=== PATIENT | male | born 1955 | race Caucasian/White ===

== ENCOUNTER 2018-04-27 19:02 | Inpatient (IN) | payer BC, OTHER ==
[~2018-04-27] VITALS: Ht 167.6 cm; Wt 42.2 kg
[~2018-04-27 19:02] MED LIST: ALBUTEROL2.5 MG/31 INH; BAYER CHEWABLE81 MG PO; BROVANA15 MCG/2 M INH; CARVEDILOL12.5 MG PO; CARVEDILOL6.25 M1 PO; CLONAZEPAM 0.50.5 M1 PO; DILTIAZEM 24HR180 M1 PO; DULERA 200 MCG/13 GM INH; IPRAT-ALBUT 0.5-3 ML INH; LASIX 40 MG TAB40 M1 PO; LEVAQUIN 500 M500 M2 PO; NITROGLYCERIN0.4 MG SUBLING; NORVASC5 MG PO; PREDNISONE 20 M20 MG PO; PULMICORT0.5 MG/2 M INH; REQUIP 0.25 M0.25 M1 PO; TOPROL XL25 MG PO; VENTOLIN HFA 1818 GM INH; ZOCOR20 MG PO
[2018-04-27 19:03] VITALS: BP 163/110
[2018-04-27] MEDS ORDERED: PROTONIX (19:12)
[2018-04-27] MEDS ORDERED: ALBUTEROL2.5 MG/31 (19:13)
[2018-04-27] MEDS ORDERED: DULERA (19:13)
[2018-04-27] MEDS ORDERED: MUCINEX600 MG (19:13)
[2018-04-27] MEDS ORDERED: SPIRIVA (19:14)
[2018-04-27] MEDS ORDERED: STOOL SOFT50 MG/5 ML (19:14)
[2018-04-27] MEDS ORDERED: JEVITY (19:15)
[2018-04-27 19:21] LABS: BE 0.6 mmol/L (-2 to +3)
[2018-04-27 19:30] LABS: PCO2 102.2 mmHg (35.0-45.0)
[2018-04-27 19:31] LABS: PO2 419.7 mmHg (75.0-100.0)
[2018-04-27 19:38] LABS: ABSOLUTE BASOPHILS 0.1 thou/uL (0.0-0.2); ABSOLUTE LYMPHOCYTES 5.2 thou/uL (0.8-5.3); ABSOLUTE MONOCYTES 0.7 thou/uL (0.0-1.2); ABSOLUTE NEUTROPHILS 9.6 thou/uL (1.6-8.1); BASOPHILS 0.5 %; HEMATOCRIT 35.8 % (42.0-52.0); HEMOGLOBIN 11.5 gm/dL (14.0-18.0); LYMPHOCYTES 33.3 %; MCH 28.1 pg (26.0-34.0); MCHC 32.1 g/dL (28.0-37.0); MCV 87.5 fL (80.0-100.0); MONOCYTES 4.7 %; MPV 7.1 fl. (7.2-11.1); NUCLEATED RBCS 0 /100WBC; PLATELET COUNT* 392 thou/uL (150-400); POLYS 61.5 %; RBC 4.09 mil/uL (4.50-6.00); RDW-CV 19.3 % (10.5-14.5); WBC 15.7 thou/uL (4.0-11.0)
[2018-04-27 20:06] LABS: APTT 32.6 Seconds (25.0-31.3); PROTIME 10.6 Seconds (9.20-11.50)
[2018-04-27 20:11] LABS: ANION GAP 8 mmol/L (7-16); BUN 21 mg/dL (7-18); CALCIUM 8.8 mg/dL (8.5-10.1); CHLORIDE 102 mmol/L (98-107); CO2 28 mmol/L (21-32); GLUCOSE 202 mg/dL (70-99); POTASSIUM 4.1 mmol/L (3.5-5.1); SODIUM 138 mmol/L (136-145)
[2018-04-27 20:22] LABS: ALBUMIN 2.4 g/dL (3.4-5.0); ALKALINE PHOSPHATASE 183 U/L (46-116); LIPASE 104 U/L (73-393); MAGNESIUM 1.9 mg/dL (1.8-2.4); SGOT 41 U/L (15-37); SGPT 27 U/L (30-65); TOTAL BILIRUBIN 0.5 mg/dL (<0.1-1.0); TOTAL PROTEIN 6.4 g/dL (6.4-8.2); TROPONIN-I LEVEL 0.46 ng/mL (<0.06)
[2018-04-27 20:46] LABS: NT-PRO BRAIN NAT PEPTIDE > 35000 pg/mL (<300)
[2018-04-27 21:09] LABS: URINE BILIRUBIN NEGATIVE (Negative); URINE BLOOD TRACE (Negative); URINE CLARITY CLEAR; URINE COLOR YELLOW; URINE GLUCOSE-RANDOM NEGATIVE (Negative); URINE KETONES NEGATIVE (Negative); URINE LEUKOCYTES-REFLEX NEGATIVE (Negative); URINE NITRITE-REFLEX NEGATIVE (Negative); URINE PROTEIN TRACE (Negative); URINE UROBILINOGEN 0.2 E.U./dl (0.2-1.0)
[2018-04-27 22:00] VITALS: BP 145/95
[2018-04-27 22:13] VITALS: BP 155/98
[2018-04-27 22:57] VITALS: BP 146/96
[2018-04-27 23:27] VITALS: BP 118/76
[2018-04-27 23:57] VITALS: BP 112/74
[2018-04-28] VITALS (38 sets, daily range): BP systolic 98–144; BP diastolic 56–79
[2018-04-28 09:02] LABS: BE 2.4 mmol/L (-2 to +3); PCO2 44.1 mmHg (35.0-45.0); pH 7.411 (7.340-7.450)
[2018-04-28 09:08] LABS: PO2 188.9 mmHg (75.0-100.0)
--- NOTE | 2018-04-28 11:09 | EKG ---
[place] [address] ELECTROCARDIOGRAM REPORT Name: COSMO,AYSE WILLSON Room: [address] ADM IN M.R.#: [id number] Admission: 04/27/18 Attend Phys: Vesna Fam Discharge: Date of : 59 Report #: [id number] THIS REPORT FOR: //name// [facility] ED Test Date: 2018-04-27 Test Time: 19:30:17 Pat Name: AYSE WILBURN Department: Room: [facility] Gender: M Modular Home Crew Member: NANCY : 1955 Requested By: iMcky James Order Number: [id number] MD: Vaughn Mcduffie Measurements Intervals [place] Rate: 108 P: 75 WV: 128 QRS: 94 QRSD: 93 T: 92 QT: 355 QTc: 476 Interpretive Statements Sinus tachycardia Right axis deviation Consider left ventricular hypertrophy Probable lateral infarct, age indeterminate Abnrm T, consider ischemia, anterolateral lds Artifact in lead(s) II,III,aVR,aVL,aVF,V1,V2,V3,V4,V5,V6 Compared to ECG 02/10/2018 10:20:54 Possible ischemia now present rate slowed Electronically Signed On 04-28-2018 11:09:39 SENIOR SOFTWARE ENGINEERING MANAGER by Vaughn Mcduffie [email or web address] <ELECTRONICALLY SIGNED> By: Vaughn Mcduffie MD, [facility] 04/28/18 1109 29 29 Vaughn Mcduffie MD, [facility] /EPI
--- NOTE | 2018-04-28 12:25 | EKG ---
[place] [address] ELECTROCARDIOGRAM REPORT Name: AYSE WILBURN Room: [address] ADM IN M.R.#: [id number] Admission: 04/27/18 Attend Phys: Vesna Fam Discharge: Date of : 59 Report #: [id number] THIS REPORT FOR: //name// [facility] Test Date: 2018-04-28 Test Time: 09:59:51 Pat Name: AYSE WILBURN Department: Room: [address] Gender: M Legislative Aide: HORTENSIA : 1955 Requested By: Trudy Hamilton Order Number: [id number] Ene MD: Vaughn Mcduffie Measurements Intervals [place] Rate: 96 P: 91 RI: 122 QRS: 90 QRSD: 90 T: 162 QT: 521 QTc: 659 Interpretive Statements Sinus arrhythmia Borderline right axis deviation Repol abnrm, prob ischemia, anterolateral lds Prolonged QT interval Electronically Signed On 04-28-2018 12:25:16 SENIOR RELATIONSHIP MANAGER by Vaughn Mcduffie [email or web address] <ELECTRONICALLY SIGNED> By: Vaughn Mcduffie MD, [facility] 04/28/18 1225 0959 0959 Vaughn Mcduffie MD, [facility] /EPI
--- NOTE | 2018-04-28 15:51 | 2DMMODE ---
[place] [address] 2 D/M-MODE ECHOCARDIOGRAM Name: AYSE WILBURN Room: [facility] ADM IN [facility]#: [id number] Admission: 04/27/18 Attend Phys: Claude Velazco Discharge: Date of : 59 Date of Service: 04/28/18 1551 Report #: [id number] THIS REPORT FOR: //name// APPROVED REPORT Study performed: 04/28/2018 13:51:21 EXAM: Limited 2D, Doppler, and color-flow Echocardiogram Patient Location: In-Patient Room #: 008 Status: routine BSA: 1.44 HR: 79 bpm BP: 108/67 mmHg Rhythm: NSR Other Information Study Quality: Good Indications Aortic Valve Disease Dyspnea 2D Dimensions LVOT Diam: 21.94 (18-24mm) Aortic Valve AoV Peak Porfirio.: 3.69 m/s AO Peak Gr.: 54.50 mmHg LVOT Max P.46 mmHg AO Mean Gr.: 33.74 mmHg LVOT Mean P.43 mmHg LVOT Max V: 0.78 m/s AO V2 VTI: 81.51 cm LVOT Mean V: 0.56 m/s XIANG (VTI): 0.79 cm2 LVOT V1 VTI: 17.10 cm Tricuspid Valve RAP Estimate: 5.00 mmHg TR Peak Gr.: 40.08 mmHg RVSP: 45.00 mmHg PA Pressure: 45.00 mmHg Left Ventricle The left ventricle is normal size. There is global hypokinesis of the left ventricle. Moderate concentric left ventricular hypertrophy. Left ventricular systolic function is mildly decreased. LVEF is 45-50%. [place] [address] 2 D/M-MODE ECHOCARDIOGRAM Name: AYSE WILBURN Room: [address] IN [facility].#: [id number] Admission: 04/27/18 Attend Phys: Claude Velazco Discharge: Date of : 59 Date of Service: 04/28/18 1551 Report #: [id number] Right Ventricle The right ventricle is normal size. The right ventricular systolic function is normal. Atria The left atrium size is normal. The right atrium size is normal. Aortic Valve Severe aortic valve sclerosis. No aortic regurgitation is present. Severe aortic stenosis. Mitral Valve The mitral valve is normal in structure. Mild mitral regurgitation. Tricuspid Valve The tricuspid valve is normal in structure. Mild tricuspid regurgitation. Moderate pulmonary hypertension. estimate pa pressure 50 mm Hg Pulmonic Valve The pulmonary valve is normal in structure. Great Vessels The aortic root is normal in size. Pericardium There is no pericardial effusion. Left pleural effusion. <Conclusion> Moderate concentric left ventricular hypertrophy. LVEF is 45-50%. Severe aortic stenosis. <ELECTRONICALLY SIGNED> By: Vaughn Mcduffie MD, FACC 04/28/18 155 155 50 Vaughn Mcduffie MD, FACC /INF
[2018-04-29] VITALS (56 sets, daily range): BP systolic 101–169; BP diastolic 56–82
[2018-04-29 03:59] LABS: ABSOLUTE LYMPHOCYTES 0.7 thou/uL (0.8-5.3); ABSOLUTE MONOCYTES 0.1 thou/uL (0.0-1.2); ABSOLUTE NEUTROPHILS 4.2 thou/uL (1.6-8.1); BASOPHILS 0.4 %; MCH 28.2 pg (26.0-34.0); MCHC 32.7 g/dL (28.0-37.0); MCV 86.2 fL (80.0-100.0); MONOCYTES 2.4 %; MPV 7.3 fl. (7.2-11.1); NUCLEATED RBCS 0 /100WBC; POLYS 83.2 %; RBC 3.37 mil/uL (4.50-6.00); RDW-CV 19.6 % (10.5-14.5)
[2018-04-29 04:09] LABS: HEMOGLOBIN 9.5 gm/dL (14.0-18.0); PLATELET COUNT* 278 thou/uL (150-400)
[2018-04-29 04:38] LABS: CALCIUM 8.4 mg/dL (8.5-10.1); CREATININE 0.8 mg/dL (0.6-1.3)
[2018-04-29 04:55] LABS: POTASSIUM 2.7 mmol/L (3.5-5.1)
[2018-04-29 09:15] LABS: BE 3.7 mmol/L (-2 to +3); PCO2 42.4 mmHg (35.0-45.0); pH 7.441 (7.340-7.450)
--- NOTE | 2018-04-29 09:40 | EKG ---
[place] [address] ELECTROCARDIOGRAM REPORT Name: AYSE WILBURN DEMETRIS Room: [address] ADM IN M.R.#: [id number] Admission: 04/27/18 Attend Phys: Vesna Fam Discharge: Date of : 59 Report #: [id number] THIS REPORT FOR: //name// [facility] Test Date: 2018-04-29 Test Time: 05:56:20 Pat Name: AYSE WILBURN Department: Room: [address] Gender: M Double Needle Operator Lockstitch: Zhao Varma : 1955 Requested By: Claude Velazco Order Number: [id number] Ene MD: Vaughn Mcduffie Measurements Intervals [place] Rate: 168 P: 266 NM: 130 QRS: 92 QRSD: 90 T: 261 QT: 294 QTc: 492 Interpretive Statements Supraventricular tachycardia Right axis deviation Consider left ventricular hypertrophy Repolarization abnormality, prob rate related Compared to ECG 04/28/2018 09:59:51 Sinus arrhythmia no longer present Electronically Signed On 04-29-2018 9:40:27 POLYMERIZATION ENGINEER by Vaughn Mcduffie [email or web address] <ELECTRONICALLY SIGNED> By: Vaughn Mcduffie MD, FAC 04/29/18 0940 0556 0556 Vaughn Mcduffie MD, [facility] /EPI
--- NOTE | 2018-04-29 10:59 | CON ---
[facility] [address] [place] [address] CONSULTATION Name: COSMOAYSE DEMETRIS Room: [address] IN M.R.#: [id number] Admission: 04/27/18 Attend Phys: Vesna Fam Discharge: Date of : 59 Report #: [id number] THIS REPORT FOR: //name// CC: Arnoldo Velazco HISTORY OF PRESENT ILLNESS: The patient is a 62-year-old male patient with history of chronic respiratory failure secondary to COPD. He is on home oxygen and unfortunately continues to smoke. He presented to the Emergency Department and admitted to this facility with the date of admission 04/27/2018. He presented with increasing shortness of breath, cough and dyspnea. His at the bedside told me they noticed for the last 48 hours, he was not acting right. He was slow, sleepy, tired and fatigued. Then, it was noticed the sleeping was slow. When he presented to the ER, apparently he was feeling very short of breath with marked worsening of breathing over 45 minutes duration. Upon arrival to the ER, he was on CPAP en route and he was given a steroid by the EMS. There was significant respiratory distress, short brief trial of noninvasive ventilation was not successful and he ended up intubated. When I saw him, he was on the propofol. He was tolerating the vent well. He was sedated and his at the bedside. Around a month ago, he ended up with a PEG tube secondary to weight loss and poor appetite, although his told me that he has no dysphagia, no cough and no choking with meals, but he continued to lose weight. This gentleman is well known to our service. He was hospitalized at this facility a few months ago with respiratory failure and he was on the vent and his workup showed bilateral upper lobe pulmonary opacities and a PET scan was recommended for him. He followed Dr. Baxter and he actually supposed to have a PET scan done this month at [facility]. It was not done yet. HOME MEDICATIONS: DuoNeb, Brovana, Coreg, diltiazem, Lasix and Protonix. There is a mention of Spiriva and Dulera on his record and Zocor. ALLERGIES: FENTANYL and MORPHINE, per the record. PAST MEDICAL HISTORY: Chronic respiratory failure, on home oxygen; COPD; active smoker; pulmonary opacities as mentioned above and hyperlipidemia. PAST SURGICAL HISTORY: No major surgery other than the PEG tube placement. PHYSICAL EXAMINATION: GENERAL: He was sedated with propofol. Sedated, thin gentleman. VITAL SIGNS: Blood pressure 110/68, breathing 15 times per minute with the vent, pulse rate of 82 and temperature 36.3. HEENT: Normocephalic and atraumatic. Pupils are reactive to light, pinpointed, not jaundiced, not pale. External ear looks normal. Oral cavity, moist mucous membrane with ET tube [place] [address] CONSULTATION Name: AYSE WILBURN Room: [address] IN M.R.#: [id number] Admission: 04/27/18 Attend Phys: Vesna Fam Discharge: Date of : 59 Report #: [id number] NECK: Full range of movement. Nontender. No masses felt. No increased jugular venous pressure with central trachea. CHEST: Diminished air movement bilaterally. Prolonged expiratory phase. No wheezes. HEART: S1 and S2. ABDOMEN: Soft, lax, benign and nontender. PEG tube was noted. No masses felt. EXTREMITIES: Lower extremity: No edema. No calf tenderness. PSYCHIATRIC: Mood and affect could not be evaluated. NEUROLOGICAL: Sedated. LYMPHATICS: No pleural lymph nodes. SKIN: No rash. LABORATORY DATA: His initial ABGs 7.12/102/419 that was on BiPAP. Repeat ABG this morning on the vent 7.4/44/188 and this was done on tidal volume of 550. His bicarbonate is 28 with a potassium 4.1, sodium 138, BUN 21 and creatinine of 1. BNP was also elevated. His PTT was 32. RADIOLOGICAL DATA: His chest x-ray showed the ET tube in good position and prominence and opacities bilaterally with signs of fluid overload. His last echocardiogram during the last hospitalization in January 2018 demonstrated EF of 45% with a grade 1 diastolic dysfunction with moderate pulmonary hypertension. IMPRESSION: 1. Uolot-ha-kuqtstp hypoxic and hypercapnic respiratory failure. 2. Chronic obstructive pulmonary disease exacerbation. 3. Congestive heart failure with ejection fraction 45% and abnormal relaxation pattern suggestive of diastolic dysfunction. 4. Pulmonary hypertension, moderate. 5. Continues to smoke. 6. Status post percutaneous endoscopic gastrostomy tube placement for continued weight loss and loss of appetite. 7. Pulmonary nodules and opacities in the upper lung wall bilaterally. PLAN: The patient of Dr. Baxter, he is supposed to have PET scan done this month, but it was not done yet. I discussed with his , He will continue to follow with his Pulmonoligist to have the PET scan scheduled as outpatient after the resolution of current acute illness . Currently, he is in respiratory failure secondary to COPD exacerbation. Continue IV steroids, continue scheduled nebulization treatment. We will add Brovana and Pulmicort for him. Continue antibiotics. Monitor fluid status. Consider p.r.n. diuresis with continue the current plan of sedation for now. We will attempt weaning trial in the morning. Condition guarded. [place] [address] CONSULTATION Name: AYSE WILBURN Room: [address] IN .R.#: [id number] Admission: 04/27/18 Attend Phys: Vesna Fam Discharge: Date of : 59 Report #: [id number] CRITICAL CARE TIME: 35 minutes. <ELECTRONICALLY SIGNED> By: Justina Gayle MD 04/29/18 1059 0936 Montserrat Gayle MD /nt
[2018-04-30] VITALS (15 sets, daily range): BP systolic 124–162; BP diastolic 65–91
[2018-04-30 04:41] LABS: HEMATOCRIT 26.6 % (42.0-52.0); MCH 28.9 pg (26.0-34.0); MCHC 33.7 g/dL (28.0-37.0); MCV 85.7 fL (80.0-100.0); MPV 7.6 fl. (7.2-11.1); NUCLEATED RBCS 0 /100WBC; PLATELET COUNT* 263 thou/uL (150-400); RDW-CV 18.7 % (10.5-14.5); WBC 6.4 thou/uL (4.0-11.0)
[2018-04-30 04:55] LABS: ALBUMIN 1.9 g/dL (3.4-5.0); CALCIUM 8.1 mg/dL (8.5-10.1); CREATININE 0.9 mg/dL (0.6-1.3); POTASSIUM 3.6 mmol/L (3.5-5.1); TOTAL BILIRUBIN 0.3 mg/dL (<0.1-1.0)
[2018-04-30 05:40] LABS: ABSOLUTE LYMPHOCYTES 0.6 thou/uL (0.8-5.3); ABSOLUTE MONOCYTES 0.1 thou/uL (0.0-1.2); ABSOLUTE NEUTROPHILS 5.6 thou/uL (1.6-8.1)
[2018-04-30 05:41] LABS: ANISOCYTOSIS 1+; PLATELET ESTIMATE ADEQUATE
[2018-05-01 11:12] VITALS: BP 118/58
[2018-05-01 11:26] VITALS: BP 118/58
[2018-05-01] MEDS ORDERED: LISINOPRIL5 MG PO (12:33)
== END 2018-05-01 13:20 | disposition home or self-care (01) | DRG 208 ==
LOC: M.ERS 19:02 → M.ICU 20:41 → M.TBA-ER 20:41 → M.ICU 21:30
PROVIDERS: Family Medicine; Internal Medicine; ADMIT Internal Medicine
PROC: 02HV33Z Insertion of Infusion Device into Superior Vena Cava, Percutaneous Approach (ICD-10-PCS; principal; 2018-04-27)
PROC: 0BH17EZ Insertion of Endotracheal Airway into Trachea, Via Natural or Artificial Opening (ICD-10-PCS; principal; 2018-04-27)
PROC: 5A1945Z Respiratory Ventilation, 24-96 Consecutive Hours (ICD-10-PCS; principal; 2018-04-27)
DX: J96.21 Acute and chronic respiratory failure with hypoxia (principal); I21.4 Non-ST elevation (NSTEMI) myocardial infarction; E43 Unspecified severe protein-calorie malnutrition; I50.43 Acute on chronic combined systolic (congestive) and diastolic (congestive) heart failure; J44.1 Chronic obstructive pulmonary disease with (acute) exacerbation; I42.9 Cardiomyopathy, unspecified; E87.2 Acidosis; R65.10 Systemic inflammatory response syndrome (SIRS) of non-infectious origin without acute organ dysfunction; Z68.1 Body mass index [BMI] 19.9 or less, adult; G93.40 Encephalopathy, unspecified; J96.22 Acute and chronic respiratory failure with hypercapnia; E78.5 Hyperlipidemia, unspecified; I48.0 Paroxysmal atrial fibrillation; R91.8 Other nonspecific abnormal finding of lung field; I73.9 Peripheral vascular disease, unspecified; K31.84 Gastroparesis; F17.210 Nicotine dependence, cigarettes, uncomplicated; I65.21 Occlusion and stenosis of right carotid artery; I35.0 Nonrheumatic aortic (valve) stenosis; I27.20 Pulmonary hypertension, unspecified; I11.0 Hypertensive heart disease with heart failure; Z93.1 Gastrostomy status; Z99.81 Dependence on supplemental oxygen; Z79.82 Long term (current) use of aspirin; Z79.899 Other long term (current) drug therapy; Z88.5 Allergy status to narcotic agent; Z88.8 Allergy status to other drugs, medicaments and biological substances

== ENCOUNTER 2018-06-01 03:21 | Inpatient (IN) | payer BC, OTHER ==
[~2018-06-01] VITALS: Ht 182.9 cm; Wt 42.2 kg
[2018-06-01] VITALS (17 sets, daily range): BP systolic 103–207; BP diastolic 62–128
[~2018-06-01 03:21] MED LIST changes: +DULERA PO; +JEVITY; +LISINOPRIL5 MG PO; +MUCINEX600 MG PO; +PROTONIX; +SPIRIVA INH; +STOOL SOFT50 MG/5 ML
[2018-06-01 03:53] LABS: HEMATOCRIT 39.4 % (42.0-52.0); HEMOGLOBIN 12.4 gm/dL (14.0-18.0); MCH 27.2 pg (26.0-34.0); MCHC 31.5 g/dL (28.0-37.0); MCV 86.5 fL (80.0-100.0); MPV 7.3 fl. (7.2-11.1); NUCLEATED RBCS 0 /100WBC; PLATELET COUNT* 473 thou/uL (150-400); RBC 4.56 mil/uL (4.50-6.00); RDW-CV 17.3 % (10.5-14.5); WBC 31.4 thou/uL (4.0-11.0)
[2018-06-01 04:04] LABS: ANION GAP 6 mmol/L (7-16); BUN 17 mg/dL (7-18); CALCIUM 8.9 mg/dL (8.5-10.1); CHLORIDE 94 mmol/L (98-107); CO2 35 mmol/L (21-32); CREATININE 1.1 mg/dL (0.6-1.3); GLUCOSE 243 mg/dL (70-99); POTASSIUM 3.6 mmol/L (3.5-5.1); SODIUM 135 mmol/L (136-145); TROPONIN-I LEVEL <0.06 ng/mL (<0.06)
[2018-06-01 04:05] LABS: PROTIME 10.7 Seconds (9.20-11.50)
[2018-06-01 04:06] LABS: ALBUMIN 2.7 g/dL (3.4-5.0); ALKALINE PHOSPHATASE 189 U/L (46-116); LIPASE 152 U/L (73-393); NT-PRO BRAIN NAT PEPTIDE > 35000 pg/mL (<300); SGOT 24 U/L (15-37); SGPT 18 U/L (30-65); TOTAL BILIRUBIN 0.2 mg/dL (<0.1-1.0); TOTAL PROTEIN 6.9 g/dL (6.4-8.2)
[2018-06-01 04:13] LABS: URINE BILIRUBIN NEGATIVE (Negative); URINE BLOOD NEGATIVE (Negative); URINE CLARITY CLEAR; URINE COLOR YELLOW; URINE GLUCOSE-RANDOM NEGATIVE (Negative); URINE KETONES NEGATIVE (Negative); URINE LEUKOCYTES-REFLEX NEGATIVE (Negative); URINE NITRITE-REFLEX NEGATIVE (Negative); URINE PROTEIN 1+ (Negative); URINE SPECIFIC GRAVITY 1.015 (1.005-1.030); URINE UROBILINOGEN 0.2 E.U./dl (0.2-1.0)
[2018-06-01 05:10] LABS: BE 3.6 mmol/L (-2 to +3); pH 7.361 (7.340-7.450)
[2018-06-01 05:13] LABS: PCO2 54.2 mmHg (35.0-45.0)
[2018-06-01 05:14] LABS: PO2 > 488.8 mmHg (75.0-100.0)
[2018-06-01 06:23] LABS: ABSOLUTE LYMPHOCYTES 8.8 thou/uL (0.8-5.3); ABSOLUTE MONOCYTES 2.2 thou/uL (0.0-1.2); ABSOLUTE NEUTROPHILS 20.4 thou/uL (1.6-8.1); ANISOCYTOSIS 1+; POIKILOCYTOSIS 1+; POLYCHROMASIA 1+
[2018-06-01 06:26] LABS: PLATELET ESTIMATE INCREASED
--- NOTE | 2018-06-01 16:07 | EKG ---
[place] [address] ELECTROCARDIOGRAM REPORT Name: COSMO,AYSE WILLSON Room: [address] ADM IN M.R.#: [id number] Admission: 06/01/18 Attend Phys: Vesna Fam Discharge: Date of : 59 Report #: [id number] THIS REPORT FOR: //name// [facility] ED Test Date: 2018-06-01 Test Time: 03:40:17 Pat Name: AYSE WILBURN Department: Room: [facility] Gender: M Microfiche Camera Operator: ZOEY : 1955 Requested By: Josefina Yanez Order Number: [id number] MD: Munir Smith Measurements Intervals [place] Rate: 114 P: 86 VT: 162 QRS: 83 QRSD: 95 T: -21 QT: 283 QTc: 390 Interpretive Statements Sinus tachycardia Biatrial enlargement Borderline right axis deviation Left ventricular hypertrophy Borderline T abnormalities, inferior leads Compared to ECG 04/29/2018 05:56:20 Atrial abnormality now present T-wave abnormality now present Supraventricular tachycardia no longer present Early repolarization no longer present Electronically Signed On 06-01-2018 16:07:09 PROJECT DEVELOPMENT LEADER by Munir Smith [email or web address] <ELECTRONICALLY SIGNED> By: Munir Smith MD, [facility] 06/01/18 1607 0340 0340 Munir Smith MD, [facility] /EPI
[2018-06-01 23:07] LABS: GLYCOHEMOGLOBIN (HGB A1C) 4.9 % (4.8-5.6)
[2018-06-02] VITALS (22 sets, daily range): BP systolic 122–183; BP diastolic 71–117
[2018-06-02 03:54] LABS: HEMATOCRIT 33.2 % (42.0-52.0); HEMOGLOBIN 10.8 gm/dL (14.0-18.0); MCH 27.1 pg (26.0-34.0); MCHC 32.5 g/dL (28.0-37.0); MCV 83.5 fL (80.0-100.0); MPV 7.3 fl. (7.2-11.1); RBC 3.98 mil/uL (4.50-6.00); RDW-CV 16.8 % (10.5-14.5)
[2018-06-02 04:08] LABS: WBC 15.5 thou/uL (4.0-11.0)
[2018-06-02 04:19] LABS: ALBUMIN 2.3 g/dL (3.4-5.0); CALCIUM 9.1 mg/dL (8.5-10.1); CREATININE 0.8 mg/dL (0.6-1.3); MAGNESIUM 1.4 mg/dL (1.8-2.4); POTASSIUM 3.4 mmol/L (3.5-5.1); TOTAL BILIRUBIN 0.3 mg/dL (<0.1-1.0)
--- NOTE | 2018-06-02 07:47 | CON ---
[address] [address] CONSULTATION Name: AYSE WILBURN Room: [address] IN M.R.#: [id number] Admission: 06/01/18 Attend Phys: Vesna Fam Discharge: Date of : 59 Report #: [id number] THIS REPORT FOR: //name// CC: Meera Velazco ATTENDING PHYSICIAN: Dr. Meera Mena. INDICATION FOR CONSULTATION: Severe COPD, acute respiratory failure. HISTORY OF PRESENT ILLNESS: The patient is a 62-year-old male, current smoker of a pack a day, who had a 4-day history of increasing cough, shortness of breath and wheezing. He was seen in the Emergency Room. Initially when he was at home, EMS transported him; his sats were 60-70%. He was placed on CPAP. They came up to 85-90%. He was still short of breath. He was still short of breath and then was intubated in the Emergency Room. It should be noted he has been hospitalized 4 times in the last 5 months according to his , who is now at the bedside. He has had several intubations, usually off in 3-[address] Bozena Baxter over the [facility] has seen him before and did have him on oxygen and then he was off oxygen. He has had some cough and some wheezing. He supposedly had a left upper lobe 2 cm scar that was PET negative. He has not had a biopsy or bronchoscopy according to his . He was taking nebulizer treatments at home was not steroid-dependent at home. PAST MEDICAL HISTORY: 1. Severe COPD. 2. Protein-calorie malnutrition with weight loss and PEG tube insertion. 3. Hypertension. 4. Tachycardia. MEDICATIONS: Outpatient medications included DuoNeb treatments 4 times a day followed by Dulera 200/5 mcg 2 puffs b.i.d., Spiriva 1 puff daily. Not on any oxygen at home. Also, has taken Jevity per tube feedings through his PEG tube and also on lisinopril 5 mg every bedtime, aspirin 81 mg daily. Currently in the hospital, he is on IV Solu-Medrol 60 mg IV every 8 hours and IV ceftriaxone for an antibiotic. Other past medical history is COPD, asthma, hyperlipidemia. PRIOR SURGERIES: Include carlin to bilateral upper extremities. He has had esophageal strictures in the past. He has had G-tube in 02/2018 because of protein-calorie malnutrition, also had a carotid endarterectomy in the past. ALLERGIES: He has allergies or intolerance to MORPHINE [place] [address] CONSULTATION Name: COSMO,AYSE WILLSON Room: [address] IN .R.#: [id number] Admission: 06/01/18 Attend Phys: Vesna Fam Discharge: Date of : 59 Report #: [id number] FAMILY HISTORY: Negative for premature cardiopulmonary disease. SOCIAL HISTORY: He is a current everyday 1 pack a day smoker, 40-50 pack years. REVIEW OF SYSTEMS: He has protein-calorie malnutrition, may have just pulmonary cachexia from his severe COPD and recent intubations. The rest of the 14-point review of systems were reviewed in HPI. PHYSICAL EXAMINATION: GENERAL: A thin, frail elderly-appearing male, older than his stated age of 62 years. VITAL SIGNS: Blood pressure is 134/84 on no pressors, heart rate 72, respirations 16, backup rate of 16, saturation on 40% is 98% at this time. The patient is 6 feet tall, weight is 42 kilograms, about 85 pounds, BMI is 12, markedly diminished. HEENT: He has a loss of muscle mass. Orally intubated. NECK: Supple, without masses or adenopathy. CHEST: Shows diminished breath sounds, prolonged expiratory phase and some wheezes noted. CARDIOVASCULAR: Regular rate and rhythm without murmur, gallop or rub. Heart rate 72. ABDOMEN: Soft, thin G-tube present in the left upper quadrant. Bowel sounds are positive. EXTREMITIES: Chronic venous stasis changes. Peripheral pulses 0 to 1+. No cyanosis, clubbing or edema. Moves all fours to commands. NEUROLOGIC: Grossly intact. Before he was intubated, he was moving all fours. LABORATORY DATA: Hemoglobin is 12, white count is 31,000 with normal differential, absolute neutrophils are 20,000, lymphocytes are 8000, platelets are 473,000, MCV is 86. Sodium is 135, potassium is 3.6. Carbon dioxide is 35, BUN 17, creatinine 1.1, glucose 243, ALT is low at 18 and alkaline phosphatase slightly elevated at 189. Anti-proBNP was 35,000 and albumin was 2.7. ABGs on 40%, 500, assist control of 14, PEEP of 5 are pending. On 100%, pO2 was greater than 200, his pH was 7.36, pCO2 was 54, bicarbonate was 30, sat was 95%, carboxyhemoglobin markedly elevated at 3.7%. Chest x-ray showed COPD, hyperinflation, right central line in place, no pneumothorax, no other infiltrates or masses. MRSA is pending. Coags were normal. IMPRESSION: 1. Very severe chronic obstructive pulmonary disease, probably becoming oxygen-dependent and steroid dependent. 2. Chronic tobacco use. 3. Left upper lobe nodule, not PET avid at this time. 4. Could be benign nodule versus early lung cancer. 5. Protein-calorie malnutrition, on G-tube feedings. 6. [place] [address] CONSULTATION Name: AYSE WILBURN DEMETRIS Room: [address] IN .R.#: [id number] Admission: 06/01/18 Attend Phys: Vesna Fam Discharge: Date of : 59 Report #: [id number] PLAN: Continue current meds. The states the patient really does not really want to be on the ventilator, but we are checking to see if he is a DNR/DNI status and she is durable power of finance attorney. We will try and get him extubated within a day or two, see what his blood gases look like on 40% and maybe do spontaneous breathing trial in the morning. Continue oral and inhaled bronchodilators, see if we can get the patient discontinue smoking. Prognosis appears quite guarded. We will cover him with antibiotics in the meantime. This has been a 33-minute critical care consult. <ELECTRONICALLY SIGNED> By: Yuriy Solomon MD 06/02/18 0747 1406 0052Arosey Solomon MD /nydia
[2018-06-03] VITALS (8 sets, daily range): BP systolic 119–160; BP diastolic 62–87
[2018-06-03] MEDS ORDERED: PREDNISONE 10 M10 MG PO (08:43)
[2018-06-03] MEDS ORDERED: AUGMENTIN 875-1 EACH PO (08:43)
== END 2018-06-03 11:30 | disposition home or self-care (01) | DRG 208 ==
LOC: M.ERS 03:21 → M.TBA-ER 05:09 → M.ICU 05:09
PROVIDERS: Emergency Medicine; Internal Medicine; ADMIT Internal Medicine
PROC: 5A09357 Assistance with Respiratory Ventilation, Less than 24 Consecutive Hours, Continuous Positive Airway Pressure (ICD-10-PCS; principal; 2018-06-01)
PROC: 5A1935Z Respiratory Ventilation, Less than 24 Consecutive Hours (ICD-10-PCS; principal; 2018-06-01)
PROC: 0BH17EZ Insertion of Endotracheal Airway into Trachea, Via Natural or Artificial Opening (ICD-10-PCS; principal; 2018-06-01)
PROC: 02HV33Z Insertion of Infusion Device into Superior Vena Cava, Percutaneous Approach (ICD-10-PCS; principal; 2018-06-01)
PROC: 5A09357 Assistance with Respiratory Ventilation, Less than 24 Consecutive Hours, Continuous Positive Airway Pressure (ICD-10-PCS; 2018-06-02)
DX: J96.21 Acute and chronic respiratory failure with hypoxia (principal); E43 Unspecified severe protein-calorie malnutrition; I50.43 Acute on chronic combined systolic (congestive) and diastolic (congestive) heart failure; J44.1 Chronic obstructive pulmonary disease with (acute) exacerbation; Z68.1 Body mass index [BMI] 19.9 or less, adult; J96.22 Acute and chronic respiratory failure with hypercapnia; I11.0 Hypertensive heart disease with heart failure; J45.909 Unspecified asthma, uncomplicated; E78.5 Hyperlipidemia, unspecified; F17.210 Nicotine dependence, cigarettes, uncomplicated; R91.1 Solitary pulmonary nodule; I35.0 Nonrheumatic aortic (valve) stenosis; I70.1 Atherosclerosis of renal artery; Z51.5 Encounter for palliative care; Z66 Do not resuscitate; I25.10 Atherosclerotic heart disease of native coronary artery without angina pectoris; Z95.1 Presence of aortocoronary bypass graft; Z88.6 Allergy status to analgesic agent; Z88.8 Allergy status to other drugs, medicaments and biological substances; Z79.52 Long term (current) use of systemic steroids; Z79.82 Long term (current) use of aspirin; Z79.899 Other long term (current) drug therapy

== ENCOUNTER 2018-06-13 02:38 | Inpatient (IN) | payer BC, OTHER ==
[2018-06-13] VITALS (20 sets, daily range): BP systolic 92–167; BP diastolic 58–109
[~2018-06-13] VITALS: Ht 182.9 cm; Wt 56.2 kg
[~2018-06-13 02:38] MED LIST changes: +AUGMENTIN 875-1 EACH PO; +PREDNISONE 10 M10 MG PO; -STOOL SOFT50 MG/5 ML; +STOOL SOFT50 MG/5 ML PO
[2018-06-13 03:01] LABS: BE 4.4 mmol/L (-2 to +3)
[2018-06-13 03:05] LABS: PO2 416.3 mmHg (75.0-100.0); pH 7.204 (7.340-7.450)
[2018-06-13 03:13] LABS: HEMATOCRIT 38.7 % (42.0-52.0); HEMOGLOBIN 12.4 gm/dL (14.0-18.0); MCH 27.3 pg (26.0-34.0); MCV 85.4 fL (80.0-100.0); MPV 7.4 fl. (7.2-11.1); NUCLEATED RBCS 0 /100WBC; PLATELET COUNT* 408 thou/uL (150-400); RBC 4.53 mil/uL (4.50-6.00); RDW-CV 17.6 % (10.5-14.5); WBC 17.3 thou/uL (4.0-11.0)
[2018-06-13 03:20] LABS: APTT 25.9 Seconds (25.0-31.3)
[2018-06-13 03:29] LABS: ANION GAP 3 mmol/L (7-16); BUN 19 mg/dL (7-18); CALCIUM 8.2 mg/dL (8.5-10.1); CHLORIDE 93 mmol/L (98-107); CO2 34 mmol/L (21-32); CREATININE 0.9 mg/dL (0.6-1.3); GLUCOSE 265 mg/dL (70-99); POTASSIUM 3.5 mmol/L (3.5-5.1); SODIUM 130 mmol/L (136-145); TROPONIN-I LEVEL <0.06 ng/mL (<0.06)
[2018-06-13 03:34] LABS: ALKALINE PHOSPHATASE 149 U/L (46-116); LIPASE 276 U/L (73-393); MAGNESIUM 1.8 mg/dL (1.8-2.4); NT-PRO BRAIN NAT PEPTIDE > 35000 pg/mL (<300); SGOT 56 U/L (15-37); SGPT 52 U/L (30-65); TOTAL BILIRUBIN 0.3 mg/dL (<0.1-1.0); TOTAL PROTEIN 6.8 g/dL (6.4-8.2)
[2018-06-13 05:19] LABS: ABSOLUTE LYMPHOCYTES 4.8 thou/uL (0.8-5.3); ABSOLUTE MONOCYTES 0.7 thou/uL (0.0-1.2); ABSOLUTE NEUTROPHILS 11.8 thou/uL (1.6-8.1); ANISOCYTOSIS 1+; HYPOCHROMASIA Occasional; PLATELET ESTIMATE INCREASED; POIKILOCYTOSIS 1+
[2018-06-13 06:00] LABS: BE 8.1 mmol/L (-2 to +3); PO2 91.9 mmHg (75.0-100.0); pH 7.407 (7.340-7.450)
[2018-06-13 06:05] LABS: PCO2 55.9 mmHg (35.0-45.0)
--- NOTE | 2018-06-13 06:32 | NUR ---
PT ADMITTED TO ICU 2 VIA STRETCHER FROM ER. PT MOVED TO HOSPITAL BED PER STAFF. ETT 7.0 22 @LIP INTACT. VENT SETTINGS AC16, TV 500, FIO2 40%, PEEP5. OGT PLACED AT 65 CM AND XRAY ORDERED FOR PLACEMENT CONFIRMATION. [place] INTACT AND PATENT DRAINING YELLOW LURINE TO BEDSIDE BAG. RESTRAINTS APPLIED ORDERED. VSS. MONITORS APPLIED WITH ALARMS SET. WILL CONTINUE TO MONITOR
--- NOTE | 2018-06-13 10:20 | NUR ---
PT ADMITTED EARLY THIS MORNING, IS ON A VENT. SPOKE WITH AT BEDSIDE, SHE SAID PT HAD BEEN DOING WELL AT HOME SINCE HE WAS DISCHARGED A COUPLE OF WEEKS AGO. PT REFUSED HOME HEALTH AFTER THAT HOSPITAL STAY, BUT HAD AGREED TO [facility]ALLI[facility] C[facility] VISIT FROM [facility], PROPERTY ANALYST WAS TO COME OUT TODAY. PT HAS BEEN TO HIS APPT AT [facility] TO BE EVAL'D FOR TAVR PROCEDURE. SAID PT AGREES TO WANTING TO HAVE IT DONE, THEY ARE WAITING ON A DECISION FROM THE DR AT [facility] IF HE IS APPROPRIATE FOR THE PROCEDURE. LORAINE CUEVA IS THE NURSE AT [facility] THAT THEY AHVE BEEN WORKING WITH ([phone]). CASE MGT WILL CONTINUE TO FOLLOW.
--- NOTE | 2018-06-13 17:43 | EKG ---
[place] [address] ELECTROCARDIOGRAM REPORT Name: COSMOAYSE WILLSON Room: [address] ADM IN M.R.#: [id number] Admission: 06/13/18 Attend Phys: Fredrick Laguerre MD Discharge: Date of : 59 Report #: [id number] THIS REPORT FOR: //name// [facility] ED Test Date: 2018-06-13 Test Time: 02:59:04 Pat Name: AYSE WILBURN Department: Room: [facility] Gender: M Budget Accountant: : 1955 Requested By: Sylvester Dominguez Order Number: [id number] MD: Karan Loving Measurements Intervals [place] Rate: 90 P: 83 [place]: 128 QRS: 84 QRSD: 102 T: 41 QT: 385 QTc: 471 Interpretive Statements Sinus rhythm Biatrial enlargement Borderline right axis deviation Left ventricular hypertrophy Anterior ST elevation, probably due to LVH Baseline wander in lead(s) I,II,aVR,V1,V2,V3,V6 Compared to ECG 06/01/2018 03:40:17 ST (T wave) deviation now present Sinus tachycardia no longer present T-wave abnormality no longer present Electronically Signed On 06-13-2018 17:43:00 CDT by Karan Loving [email or web address] <ELECTRONICALLY SIGNED> By: Karan Loving MD, [facility] 06/13/18 1743 8 8 Karan Loving MD, [facility] /EPI
--- NOTE | 2018-06-13 18:29 | NUR ---
ASSESSEMENT CHARTED. PATIENT REMAINED ON THE VENTILATOR DURING THE SHIFT. PULMONARY AND CARDIOLOGY CONSULTED, AGREED TO KEEP THE PATIENT ON THE VENT FOR THE NEXT COUPLE DAYS AND MONITOR PATIENT PROGRESS. PATIENT ABLE TO BE AROUSED WHILE ON SEDATION. TITRATED VERSED UP TO 6 MG/HR. PATIENT'S AT BEDSIDE FOR MOST THE DAY. PATIENT BEING SEEN BY FANCY NEEDLEWORKER AT [facility]. PATIENT URINE OUTPUT LOW. PATIENT REMAINED IN RESTRAINTS DURING SHIFT FOR PATIENT SAFETY.
[2018-06-14] VITALS (23 sets, daily range): BP systolic 96–121; BP diastolic 64–82
[2018-06-14 04:13] LABS: MCH 27.7 pg (26.0-34.0); MCV 84.1 fL (80.0-100.0); MPV 7.4 fl. (7.2-11.1); NUCLEATED RBCS 0 /100WBC; RBC 3.44 mil/uL (4.50-6.00); RDW-CV 17.4 % (10.5-14.5); WBC 7.4 thou/uL (4.0-11.0)
[2018-06-14 04:19] LABS: BE 4.7 mmol/L (-2 to +3); PCO2 38.7 mmHg (35.0-45.0); pH 7.484 (7.340-7.450)
[2018-06-14 04:23] LABS: PO2 169.8 mmHg (75.0-100.0)
[2018-06-14 04:29] LABS: HEMOGLOBIN 9.6 gm/dL (14.0-18.0); PLATELET COUNT* 255 thou/uL (150-400)
[2018-06-14 04:47] LABS: ALBUMIN 2.2 g/dL (3.4-5.0); CALCIUM 8.4 mg/dL (8.5-10.1); CREATININE 0.8 mg/dL (0.6-1.3); POTASSIUM 3.8 mmol/L (3.5-5.1); TOTAL BILIRUBIN 0.2 mg/dL (<0.1-1.0); TOTAL PROTEIN 5.1 g/dL (6.4-8.2)
--- NOTE | 2018-06-14 06:06 | NUR ---
REPORT RECEIVED FROM OFF GOING SHIFT AND CARE ASSUMMED. PT REMAINS ON VENTILATOR. ETT 7.0 22@ LIP. VENTILATOR SETTINGS AC 6, TV 500 PEEP5 AND FIO2 30%. MONITORS INTACT WITH ALARMS SET. OGT INTACT AT 65CM AND CONNECTED TO LIS. [place] INTACT AND PATENT DRAINING YELLOW URINE TO BEDSIDE BAG. GT INTACT AND JEVITY 1.5 INTACT AND INFUSING AT 30 CC/HR VIA PUMP ORDERED..GOAL 40CC/HR. VSS AND NO ACUTE DISTRESS AND NO ACUTE CHANGES DURING SHIFT. PT AROUSES EASLIY AND GESTURES TO REMOVE TUBE. WILL CONTINUE TO MONITOR
[2018-06-14 06:51] LABS: ABSOLUTE LYMPHOCYTES 0.8 thou/uL (0.8-5.3); ABSOLUTE MONOCYTES 0.1 thou/uL (0.0-1.2); ABSOLUTE NEUTROPHILS 6.4 thou/uL (1.6-8.1); PLATELET ESTIMATE ADEQUATE
[2018-06-14 06:52] LABS: ANISOCYTOSIS 1+; HYPOCHROMASIA 1+
--- NOTE | 2018-06-14 07:56 | CON ---
[facility] [address] [place] [address] CONSULTATION Name: AYSE WILBURN DEMETRIS Room: [address] IN M.R.#: [id number] Admission: 06/13/18 Attend Phys: Fredrick Laguerre MD Discharge: Date of : 59 Report #: [id number] THIS REPORT FOR: //name// CC: [facility] physician/PCP Fredrick Laguerre DATE OF SERVICE: 06/13/2018 REFERRING PHYSICIAN: Fredrick Laguerre M.D. CHIEF COMPLAINT: Respiratory failure. HISTORY OF PRESENT ILLNESS: The patient is a 62-year-old male who was intubated. He presented to the Emergency Room. Review of records reflects that the patient had been experiencing shortness of breath at home. When EMS arrived, the patient's saturations were extremely low. Upon evaluation, it was felt that he needed to be intubated and it appears that he was intubated in the field. He was brought to the ED and upon arrival was evaluated. After complete evaluation by the ER staff, he was then transferred to the Intensive Care Unit where we were asked to participate in his care. I had an opportunity to see the patient when he is in the intensive care unit. He is intubated on appropriate sedation. He is on fentanyl, Versed drip at this time. No additional history at this time. Review of records was performed from prior hospitalizations. He has had multiple hospitalizations and intubations in the past. PAST MEDICAL HISTORY: Significant for severe aortic stenosis, chronic obstructive airways disease, tobacco abuse, hypertension, peripheral vascular disease. He is status post an abdominal aortic aneurysm repair in 2009. He is on chronic oxygen therapy at home. He has had carotid endarterectomy procedures performed. ALLERGIES: HE APPARENTLY IS ALLERGIC TO FENTANYL AND MORPHINE, ALTHOUGH HE IS GETTING FENTANYL AT THIS TIME WITHOUT A REACTION. FAMILY HISTORY: Not obtainable. SOCIAL HISTORY: He is a smoker. REVIEW OF SYSTEMS: Not obtainable. MEDICATIONS: See the patient's medication list. PHYSICAL EXAMINATION: VITAL SIGNS: Reveal a blood pressure of 107/74, respiratory rate 14-18, [place] [address] CONSULTATION Name: AYSE WILBURN Room: [address] IN [facility]#: [id number] Admission: 06/13/18 Attend Phys: Fredrick Laguerre MD Discharge: Date of : 59 Report #: [id number] rate is 70, appears to be sinus on the monitor. Temperature 96 degrees. Weight is 94 pounds. GENERAL APPEARANCE: The patient is sedated and intubated. Orogastric tube is in place as is Phelps catheter, SCDs. HEENT: Head is atraumatic. Eyes: Pupils are round, equal, reactive. Sclerae and conjunctivae are clear. Nose: Nasal passages are patent. Oral cavity reveals the ET tube and orogastric tube intact and in place and secure. NECK: Reveals a right IJ line for central use. No adenopathy. CHEST: Quiet with diminished breath sounds. Barrel type looking chest. CARDIOVASCULAR: Distant heart tones. Aortic stenosis murmur present. ABDOMEN: Soft, no organomegaly or tenderness or rebound. EXTREMITIES: Negative for edema or clubbing. SKIN: Warm and dry without rash or lesions. LYMPHATICS: Negative. NEUROLOGIC: Pulses equal bilaterally, but weak. LABORATORY DATA: Sodium 130, potassium 3.5, chloride 93, CO2 of 34, BUN of 19, creatinine 0.9, EGFR 86. Liver enzymes are normal. Magnesium is normal. Troponin less than 0.06. ProBNP greater than 35,000. Hemoglobin and hematocrit of 12.4 and 39 with a white count of 17,300, platelet count is adequate. Arterial blood gas more recently obtained at 5:40 a.m. reveals a pH of 7.41, pCO2 of 56, pO2 of 92, bicarbonate of 34 while on 40% FiO2, assist control of 16, tidal volume 500, PEEP of 5. MEDICAL IMAGING STUDIES: Chest x-ray reveals the ET tube, right IJ line to be in adequate position. Hyperinflation present. No acute infiltrate or mass is present. ASSESSMENT: 1. Acute exacerbation of chronic obstructive pulmonary disease. 2. Acute respiratory failure, requiring intubation. 3. Severe aortic stenosis after reviewing records and his last echocardiogram in the last couple of months. 4. Presumed fluid overload based on an elevated brain natriuretic peptide, although some of that could be contributed from his acute respiratory distress and intubation with right heart strain most likely, although the echocardiograms in the past did not reflect pulmonary hypertension. 5. Protein malnutrition. 6. Tobacco abuse. RECOMMENDATIONS: The patient remains a full code. He is properly sedated at this time. We will obtain a Cardiology consultation to address his aortic stenosis. Also, his elevated BNP, although his x-ray does not appear to be fluid overload state, there are no audible crackles on auscultation. Follow up ABGs, chest x-ray, labs in the a.m. Cultures have already been [address] [address] CONSULTATION Name: AYSE WILBURN Room: [address] IN .R.#: [id number] Admission: 06/13/18 Attend Phys: Fredrick Laguerre MD Discharge: Date of : 59 Report #: [id number] obtained. The patient has been started on appropriate bronchodilator therapy. He is on aerosol treatments as well as steroid therapy. <ELECTRONICALLY SIGNED> By: Yuriy Solomon MD 06/14/18 0756 [id number] Rivas MD /nydia
--- NOTE | 2018-06-14 08:23 | NUR ---
WHEN PT TOUCHED. PT ARROUSES EASILY. EYES WIDE OPEN. PT ABLE TO FOLLOW COMMANDS. PT BECOMES AGITATED AND ATTEMPTS TO PULL OUT ET TUBE. PULMONARY NOTIFIED. DUE TO ALERTNESS AND PT FOLLOWING COMMANDS SEDATION VACATION NOT PREFORMED. PULMONARY NOTIFIED AND RECEIVED ORDER TO NOT TO SEDATION VACATION TODAY. PT HAS REPORTED ALLERGY TO FENTANYL. REPORTEDLY MAKES PT COMBATIVE. PULMONARY NOTIFIED. PT TO STAY ON FENTANYL. RECEIVED ORDER TO INCREASE VERSED AND TRY TO TITRATE FENTANYL DOWN IF ABLE TO. ALSO RECEIVED ORDER TO ADMININSTER XANAX PER TUBE.
--- NOTE | 2018-06-14 12:40 | NUR ---
PATIENT ON VENTILATOR, AROUSABLE TO VOICE AND AGITATED AT TIMES. SEDATION WITH VERSED INCREASED TO 8MG/HR. NO WEANING TRIAL TODAY. G TUBE FEEDING INCREASED TO GOAL, 40MLS/HR. TOLERATING WELL.
--- NOTE | 2018-06-14 19:08 | NUR ---
PATIENT IN VENT SUPPORT, TOLERATING WELL. SEDATED WITH VERSED 8 AND FENTANYL 5O. INFECTIOUS DISEASE CONSULTED FOR POSITIVE BLOOD CULTURE, ANTIBIOTICS UPDATED. TOLERATING TUBE FEEDS AT 40MLS/HR. ROUTINE CARE GIVEN.
[2018-06-15] VITALS (35 sets, daily range): BP systolic 106–1123; BP diastolic 38–142
--- NOTE | 2018-06-15 05:59 | CON ---
[address] [address] CONSULTATION Name: AYSE WILBURN Room: [address] IN M.R.#: [id number] Admission: 06/13/18 Attend Phys: Fredrick Laguerre MD Discharge: Date of : 59 Report #: [id number] THIS REPORT FOR: //name// CC: [facility] physician/PCP Fredrick Laguerre DATE OF SERVICE: 06/14/2018 INFECTIOUS DISEASE CONSULTATION ATTENDING PHYSICIAN: Virgil Augustine MD REASON FOR EVALUATION: Positive blood culture. The patient with critical illness, respiratory failure, on ventilator support, RVP support. HISTORY OF PRESENT ILLNESS: Chart reviewed, the patient examined, 62-year-old, extensive medical history, has advanced COPD, supplemental oxygen required 3-4 liters ongoing basis. Also, has severe cardiomyopathy, aortic stenosis; who was hospitalized following a call, was found to be unresponsive with dyspnea. It is notable he has history of hypercarbic as well and he was encephalopathic. He was intubated at the scene. It is notable he was just hospitalized and did have respiratory failure requiring intubation within last 30 days as well. As part of the evaluation, blood cultures were collected, now one out of two positive gram-positive cocci, empirically started on therapy with Zosyn, it is not clear that he had any fevers. Most of the history obtained from the spouse. She notes he had a good appetite. Weight was quite decreased likely due to his heavy disease burden. At this point, he is sedated on the vent. He is restless. There are efforts ongoing to progress his weaning FiO2 of 30%. ALLERGIES: MORPHINE and FENTANYL. MEDICATIONS: Include Zosyn, ipratropium albuterol inhaler, midazolam, and methylprednisolone. PAST MEDICAL HISTORY: As described above, advanced COPD, oxygen requiring, with asthmatic component, hyperlipidemia, hypertension, previous abdominal aortic repair, bypass, esophageal strictures, aortic stenosis, carotid endarterectomy, and anxiety. SOCIAL HISTORY: Smokes a pack a day as 40 years. FAMILY HISTORY: Noncontributory. REVIEW OF SYSTEMS: Not obtainable. PHYSICAL EXAMINATION: [place] [address] CONSULTATION Name: AYSE WILBURN Room: [address] IN [facility]#: [id number] Admission: 06/13/18 Attend Phys: Fredrick Laguerre MD Discharge: Date of : 59 Report #: [id number] GENERAL: He appears chronically ill, undernourished, almost cachectic. VITAL SIGNS: Temperature 97.5, pulse 76, respirations 13, and blood pressure 114/79. SKIN: Warm. There is multiple contused areas, loss of subcutaneous tissue, skin is thin, HEENT: Normocephalic. NECK: Supple, has got the ET tube in place. LUNGS: Diminished breath sounds throughout. There are few scattered crackles. HEART: Distant, regular with ectopy, has a systolic murmur. ABDOMEN: Mildly Scaphoid, soft, nontender. EXTREMITIES: No edema. GENITOURINARY: Deferred. RECTAL: Deferred. LABORATORY DATA: Blood culture 1 out of 2 with growth of gram-positive cocci. Chest x-ray from this a.m. showed mild improvement in general chest appearance, persisting left effusion. No clinical or radiographic evidence of heart failure, moderate hyperinflation, diffuse chronic pulmonary changes. CBC: White count of 7.4, H and H 9.6 and 29.0, and platelets of 255. Differential unremarkable. Electrolytes: Sodium 136, potassium 3.8, chloride 102, bicarbonate is 32, anion gap of 2, BUN and creatinine 20 and 0.8, glucose of 161. AST of 21, ALT of 32, albumin 2.2, total protein 5.1, estimated GFR of 99. ABGs: pH 7.484, pCO2 of 38.7, pO2 of 169.8, on FiO2 of 35% on the ventilator. ASSESSMENT: Positive blood culture in the setting of respiratory failure and perhaps a hospital-acquired pneumonitis, difficult to ascertain. He is a difficult ____ initiate in addition to the piperacillin tazobactam and vancomycin in the interim with pending results of the culture, did discuss in detail with the spouse. <ELECTRONICALLY SIGNED> By: Karl Flores MD 06/15/18 0559 [id number] Flores MD /nt
--- NOTE | 2018-06-15 06:11 | NUR ---
REPORT RECEIVED FROM OFF GOING SHIFT AND CARE ASSUMMED. PT REMAINS ON VENTILATOR, ETT7.0 22 @LIP WI SETTINGS TV 500, AC 16, PEEP 5 AND FIO2 30%. PT FAILED WEANING TRIAL THIS AM. PT IS VERY TEARFUL. MONITORS INTACT WITH ALARMS SET. JEVITY 1.5 INFUSING AT 40CC/HR GOAL 40CC/HR VIA PUMP VIA G TUBE. OGT INTACT AT 65CM AND TAPED TO ETT. VSS AND NO ACUTE CHANGES DURING SHIFT WILL CONTINUE TO MONITOR
[2018-06-15 12:38] LABS: ABSOLUTE LYMPHOCYTES 0.6 thou/uL (0.8-5.3); ABSOLUTE MONOCYTES 0.3 thou/uL (0.0-1.2); BASOPHILS 0.2 %; HEMATOCRIT 28.9 % (42.0-52.0); HEMOGLOBIN 9.3 gm/dL (14.0-18.0); LYMPHOCYTES 6.4 %; MCH 27.5 pg (26.0-34.0); MCHC 32.3 g/dL (28.0-37.0); MCV 85.4 fL (80.0-100.0); MONOCYTES 3.1 %; MPV 7.6 fl. (7.2-11.1); NUCLEATED RBCS 0 /100WBC; PLATELET COUNT* 253 thou/uL (150-400); POLYS 90.3 %; RBC 3.39 mil/uL (4.50-6.00); RDW-CV 17.8 % (10.5-14.5); WBC 8.9 thou/uL (4.0-11.0)
[2018-06-15 12:51] LABS: ALBUMIN 2.2 g/dL (3.4-5.0); CALCIUM 8.5 mg/dL (8.5-10.1); CREATININE 0.7 mg/dL (0.6-1.3); POTASSIUM 3.9 mmol/L (3.5-5.1); TOTAL BILIRUBIN 0.1 mg/dL (<0.1-1.0)
--- NOTE | 2018-06-15 13:10 | NUR ---
PATIENT ON VENT SUPPORT, AGITATED AND TRYING TO PULL OUT THE TUBE, SEDATION INCREASED, VERSED TO 8 AND FENTANYL 50. WEANING TRAIL NOT ORDERED FOR TODAY. TOLERATING G TUBE FEEDS.
[2018-06-15 15:19] LABS: PCO2 37.2 mmHg (35.0-45.0); PO2 79.3 mmHg (75.0-100.0); pH 7.399 (7.340-7.450)
--- NOTE | 2018-06-15 18:25 | NUR ---
PATIENT PASSED HIS WEANING TRIAL AND GOT EXTUBATED AT 1545, EXTUBATION UNEVENTFUL BUT AFTER 15 MINS, HE GOT TACHYPNEIC AND DYSPNEIC, HR UPTO 160S,BP INCREASED TO 180/130S GOT ORDERS FOR BIPAP FROM PULMONARY. PT ON BIPAP SINCE 1614. PT STILL AGITATED AND RESTLESS. PRECEDEX ORDERS FROM DR BOURGEOIS, INCREASED TO 1.3. PATIENT MILDLY SEDATED, HR DOWN TO 130S, SPO2 98%. G TUBE FEEDING HOLD AFTER EXTUBATION.
[2018-06-15 18:40] LABS: BE -2.9 mmol/L (-2 to +3); PO2 103.6 mmHg (75.0-100.0)
[2018-06-15 18:46] LABS: PCO2 84.1 mmHg (35.0-45.0)
--- NOTE | 2018-06-15 19:05 | NUR ---
ABG RESULTS OBTAINED POST EXTUBATION, CRITICAL VALUES OF PH 7.14, PCO2 84.1 INFORMED TO PULMONARY ON DUTY. RECEIVED ORDERS FOR INTUBATION WITH SETTINGS AC 18, TV-500, FIO2 100, PEEP 5 AND FOLLOW UP ABG AFTER 1 HR. PT TO BE SEDATED WITH PROPOFOL AND FENTANYL PER PROTOCOL. PT INTUBATED [id number], WITH 7.5 TUBE FIXED AT 22. RECEIVED VERSED 10, SUX 75. INSERTED OG AT 60
[2018-06-15 20:56] LABS: BE 3.3 mmol/L (-2 to +3); PCO2 47.1 mmHg (35.0-45.0); pH 7.402 (7.340-7.450)
[2018-06-15 21:01] LABS: PO2 269.8 mmHg (75.0-100.0)
[2018-06-16] VITALS (47 sets, daily range): BP systolic 84–124; BP diastolic 57–80
--- NOTE | 2018-06-16 06:16 | NUR ---
REPORT RECEIVED FROM OFF GOING SHIFT AND CARE ASSUMMED. ETT AND OGT PLACEMENT VERIFIED PER XRAY. ETT 7.5 24@ GUM CONNECTED TO VEWNTILATOR WITH SETTINGS OF TV 500 AC 18 PEEP 5 AND FIO2 100%. AFTER REPEAT ABGS FIO2 DECREASED TO 40%. JEVITY CONNECTED TO G TUBE AND INFUSING AT 40CC/HR. WITH NO RESIDUALS THIS SHIFT. [place] INTACT AND PATENT DRAINING YELLOW URINE TO BEDSIDE BAG. APPROXIMATELY 0100 PT INSISTED THAT BE CALLED TO HAVE HER COME TO HOSPITAL. NOTIFIED. ARRIVED AND PT VERY TEARFUL AND INFORMED HER HE WAS TIRED AFTER VISITING WITH FOR A BIT REQUESTED SEDATION BE INCREASED. STATED WILL DISCUSS WITH DRS IN AM ABOUT BEING MADE DNR AND POSSIBLE COMFORT CARE. VSS. MONITORS ITNACT. WILL CONTINUE TO MONITOR. REQUESTED FOR PATIENT TO NOT BE BATHED THIS SHIFT SHE WANTED HIM TO SLEEP.
[2018-06-16 09:21] LABS: ABSOLUTE LYMPHOCYTES 0.5 thou/uL (0.8-5.3); ABSOLUTE MONOCYTES 0.3 thou/uL (0.0-1.2); ABSOLUTE NEUTROPHILS 8.6 thou/uL (1.6-8.1); BASOPHILS 0.2 %; HEMATOCRIT 30.2 % (42.0-52.0); HEMOGLOBIN 9.6 gm/dL (14.0-18.0); LYMPHOCYTES 4.9 %; MCH 27.5 pg (26.0-34.0); MCHC 31.9 g/dL (28.0-37.0); MCV 86.2 fL (80.0-100.0); MPV 7.7 fl. (7.2-11.1); NUCLEATED RBCS 0 /100WBC; PLATELET COUNT* 214 thou/uL (150-400); POLYS 91.9 %; RDW-CV 17.8 % (10.5-14.5); WBC 9.3 thou/uL (4.0-11.0)
[2018-06-16 09:35] LABS: CALCIUM 8.4 mg/dL (8.5-10.1); CREATININE 0.7 mg/dL (0.6-1.3); MAGNESIUM 1.9 mg/dL (1.8-2.4); POTASSIUM 3.8 mmol/L (3.5-5.1); TOTAL BILIRUBIN 0.2 mg/dL (<0.1-1.0); TOTAL PROTEIN 4.7 g/dL (6.4-8.2)
--- NOTE | 2018-06-16 16:50 | NUR ---
SPOKE WITH DTR AT BEDSIDE, NOT IN THE ROOM AT THIS TIME. DTR SAID THEY ARE COMFORTABLE WITH THE DECISION THEY MADE TO MAKE PT DNR. PT SEDATED AND RESTING COMFORTABLY AT THIS TIME. CASE MGT WILL CONTINUE TO FOLLOW.
--- NOTE | 2018-06-16 18:29 | NUR ---
PATIENT ASSESSMENT CHARTED. PATIENT REMAINED SEDATED DURING SHIFT TODAY. SEDATION NEEDED TO BE INCREASED TO KEEP PATIENT COMFORTABLE. PATIENT'S SPOUSE MET WITH DR. BRANDT TODAY AND DISCUSSED CHANGING THE CODE STATUS OF THE PATIENT. AGREEMENT WAS REACHED TO CHANGE THE PATIENT TO A DNR CODE STATUS. PATIENT'S AND DAUGHTER VISITED DURING SHIFT AND LEFT FOR THE DAY AROUND 1700. RESTRAINTS APPLIED TO THE PATIENT AT 1400. PATIENT WAS REACHING FOR THE ET TUBE AND PICKING AT THE DRESSING SECURING TUBE. RESTRAINTS APPLIED TO PREVENT PATIENT FROM SELF EXTUBATION.
[2018-06-17] VITALS (34 sets, daily range): BP systolic 103–131; BP diastolic 70–86
[2018-06-17 06:11] LABS: BE 6.1 mmol/L (-2 to +3); PCO2 48.7 mmHg (35.0-45.0); PO2 117.7 mmHg (75.0-100.0); pH 7.427 (7.340-7.450)
[2018-06-17 06:37] LABS: HEMATOCRIT 30.4 % (42.0-52.0); HEMOGLOBIN 9.9 gm/dL (14.0-18.0); MCH 27.8 pg (26.0-34.0); MCHC 32.6 g/dL (28.0-37.0); MCV 85.2 fL (80.0-100.0); MPV 7.6 fl. (7.2-11.1); RBC 3.56 mil/uL (4.50-6.00); RDW-CV 18.2 % (10.5-14.5); WBC 7.4 thou/uL (4.0-11.0)
[2018-06-17 06:39] LABS: CALCIUM 8.3 mg/dL (8.5-10.1); CREATININE 0.6 mg/dL (0.6-1.3); POTASSIUM 3.7 mmol/L (3.5-5.1)
--- NOTE | 2018-06-17 06:53 | NUR ---
SLOW PROGRESSION TOWARDS GOALS, REMAINS ON VENTILATOR, NO CHANGE IN VENTILATOR SETTINGS BY RT DURING NOC, TITRATED OFF PROPOFOL GTT, TITRATED VERSED UP TO 7MG/HR, FENTANYL GTT CONTINUES VIA INFUSION PUMP AT 50MCG/HOUR, AND PRECEDEX CONTINUES 1.3MCG/KG/MIN FOR SEDATION TO MAINTAIN RASS -2, SAO2 100% ON FIO2 40%, TOLERATING JEVITY 1.5 VIA GASTRIC TUBE WITH =<5CC GASTRIC RESIDUAL ALL NOC, AFEBRILE, NSR TRACING CONTINUOUS VULCANIZING MACHINE OPERATOR, FULL BED BATH GIVEN, EMOTIONAL SUPPORT PROVIDED, SAFETY MAINTAINED.
[2018-06-17 07:06] LABS: ADENOVIRUS Negative (Negative); INFLUENZA A Negative (Negative); INFLUENZA B Negative (Negative); METAPNEUMOVIRUS Negative (Negative); PARAINFLUENZA 1 Negative (Negative); PARAINFLUENZA 2 Negative (Negative); PARAINFLUENZA 3 Negative (Negative); RHINOVIRUS Negative (Negative); RSV A Negative (Negative); RSV B Negative (Negative)
--- NOTE | 2018-06-17 09:53 | NUR ---
PT EXTUBATED AT 0934. PT LEFT ON VERSED AT 6MG/HOUR AND PRECEDEX AT 1.3 MCG/KG/H. PER DR BOURGEOIS PT TO REMAIN ON SEDATION AND ATTEMPT TO TITRATE VERSED DOWN TO 4MG/HOUR.
--- NOTE | 2018-06-17 18:30 | NUR ---
PT TOLERATING 4L NC. PT SATTING AT 100%. PER DR BOURGEOIS'S ORDERS PT TO REMAIN ON PRECEDEX AND VERSED. TITRATED VERSED FROM 6MG TO 4MG IF POSSIBLE. PT TEARFUL AT TIMES. FAMILY HAS BEEN AT BEDSIDE. PER ORDERS PT ABLE TO HAVE CLEAR LIQUID DIET IF ALERT AND PASSES SWALLOW EVAL. ST EVALUATED PT AND CLEARED TO HAVE CLEAR LIQUIDS. PT ALERT TO PERSON, PLACE TIME AND APPEARS TO BE ORIENTED TO SITATION. THIS EVENING PT ASKED NURSE IF WE KNEW WHEN HE WOULD . PT TEARFUL WHEN ASKING.
[2018-06-18] VITALS (31 sets, daily range): BP systolic 122–194; BP diastolic 87–130
--- NOTE | 2018-06-18 06:56 | NUR ---
PROGRESSING TOWARDS GOALS, DROWSY, EASILY AROUSABLE, CONVERSATIVE MOST OF NOC, TEARFUL AT TIMES, STATES "MY IS JUST GOING TO HAVE TO LET ME GO, [place] BEEN IN THE HOSPITAL 4 TIMES WITH THIS AND IM READY TO GO" DENIES SUICIDAL IDEATION, EMOTIIONAL SUPPORT PROVIED, AFBEBRILE, SAO2 =>98% ON OXYGEN 4L PER NC, DENIES PAIN OR DISCOMFORT, VERSED GTT CONTINUES 4MG/HR AND PRECEDEX CONTINUES 1.3MCG/KG/HR VIA INFUSION PUMP FOR RELAXATION PER ORDER, TOLERATING LIQUID DIET, REQUESTING BREAKFAST MEAL, TOLERATING JEVITY 1.5ML/HR VIA TUBE FEEDING PUMP, GASTRIC RESIDUALS =<5CC. USING CALL LIGHT THIS AM FOR NEEDS. SAFETY MAINTAINED.
[2018-06-18 13:19] LABS: ABSOLUTE BASOPHILS 0.1 thou/uL (0.0-0.2); ABSOLUTE LYMPHOCYTES 0.4 thou/uL (0.8-5.3); ABSOLUTE MONOCYTES 0.6 thou/uL (0.0-1.2); ABSOLUTE NEUTROPHILS 14.2 thou/uL (1.6-8.1); BASOPHILS 0.4 %; HEMATOCRIT 34.1 % (42.0-52.0); HEMOGLOBIN 11.1 gm/dL (14.0-18.0); LYMPHOCYTES 2.8 %; MCH 27.4 pg (26.0-34.0); MCHC 32.6 g/dL (28.0-37.0); MCV 84.2 fL (80.0-100.0); MONOCYTES 3.6 %; MPV 7.6 fl. (7.2-11.1); NUCLEATED RBCS 0 /100WBC; PLATELET COUNT* 219 thou/uL (150-400); POLYS 93.2 %; RBC 4.05 mil/uL (4.50-6.00); RDW-CV 17.8 % (10.5-14.5); WBC 15.3 thou/uL (4.0-11.0)
[2018-06-18 13:28] LABS: ALBUMIN 2.1 g/dL (3.4-5.0); CREATININE 0.7 mg/dL (0.6-1.3); MAGNESIUM 1.6 mg/dL (1.8-2.4); POTASSIUM 4.2 mmol/L (3.5-5.1); TOTAL BILIRUBIN 0.3 mg/dL (<0.1-1.0)
--- NOTE | 2018-06-18 19:55 | NUR ---
ASSESSMENT CHARTED. PATIENT'S ANXIETY AND AGITATION DECREASED DURING SHIFT. MOOD NOW CALM. PATIENT BEGAN MAKING JOKES AND EXPRESSING MORE ENJOYMENT WITH SELF TODAY. PATIENT'S BLOOD PRESSURE BEGAN TO RISE STEADILY AND STAY ELEVATED DURING SHIFT. BLOOD PRESSURE MEDICATIONS, SCHEDULED AND PRN, ADMINISTERED WITH MINIMAL EFFECT. DR. BRANDT AND DR. PANTOJA CONTACTED OVER SWELLING IN RIGHT ARM THAT HAS INCREASED AND BECAME HOT DURING SHIFT. PATIENT WENT TO CT AND UNDERGONE AN ULTRASOUND OF THE ARM. PATIENT DIET CHANGED FROM CLEAR LIQUID TO REGULAR TODAY.
--- NOTE | 2018-06-18 23:30 | NUR ---
PT C/O MIDSTERNAL CP, DENIES AGGRAVATING OR RELIEVING FACTORS. MORPHINE 4MG IVP GIVEN, MORPHINE HELPFUL FOR PAIN MANGEMENT. PT REPORTS DECREASED PAIN LEVEL USING NUMERICAL PAIN SCALE FROM 6/10 TO 2/10. DIAPHORETIC AND FLUSHED, FAN ON FOR COMFORT, STAT EKG AND TROPONIN ORDERED. STAT EKG OBTAINED. SPOKE WITH DR PANTOJA VIA TELEPHONE. NEW ORDERS OBTAINED CONSULT CARDIOLOGY. HYDRALAZINE EFFECTIVE HTN. WILL INITATE ORDERS AND CONTINUE TO MONITOR.
--- NOTE | 2018-06-18 23:40 | NUR ---
SPOKE WITH DR LAGOS VIA TELEPHONE, ADVISED CONSULT HIMS, IF COOK RAILROAD REQUIRED, WILL NEED TO CONTACT DR TREADWELL. ED MD DR ROMERO VERIFIED NO STEMI ON EKG. SKIN REMAINS FLUSHED. NO LONGER DIAPHORETIC. DENIES SOA OR DIFFICULTY BREATHING. NO CHANGE, PER DR ROMERO, ON EKG COMPARED TO PREVIOUS EKG DONE ON 06/13/18.
[2018-06-19] VITALS (17 sets, daily range): BP systolic 120–160; BP diastolic 80–98
[2018-06-19 04:15] LABS: ABSOLUTE LYMPHOCYTES 0.5 thou/uL (0.8-5.3); ABSOLUTE MONOCYTES 0.3 thou/uL (0.0-1.2); ABSOLUTE NEUTROPHILS 13.1 thou/uL (1.6-8.1); BASOPHILS 0.1 %; HEMATOCRIT 36.9 % (42.0-52.0); LYMPHOCYTES 3.8 %; MCHC 32.4 g/dL (28.0-37.0); MCV 83.4 fL (80.0-100.0); MONOCYTES 2.2 %; NUCLEATED RBCS 0 /100WBC; PLATELET COUNT* 237 thou/uL (150-400); POLYS 93.9 %; RBC 4.42 mil/uL (4.50-6.00); RDW-CV 18.1 % (10.5-14.5); WBC 13.9 thou/uL (4.0-11.0)
[2018-06-19 04:40] LABS: CALCIUM 8.2 mg/dL (8.5-10.1); CREATININE 0.8 mg/dL (0.6-1.3); POTASSIUM 3.8 mmol/L (3.5-5.1); TOTAL BILIRUBIN 0.3 mg/dL (<0.1-1.0)
[2018-06-19 05:30] LABS: TROPONIN-I LEVEL 1.98 ng/mL (<0.06)
--- NOTE | 2018-06-19 07:00 | NUR ---
AWAKE MOST OF NOC, DENIES CP OR DISCOMFORT AFTER 0010, AWAKE, ALERT, AND CONVERSATIVE THIS AM. TROPONIN TRENDING DOWN TO 1.98. LOPRESSOR 10MG IVP GIVEN X1 PER ORDER EFFECTIVE FOR TACHYCARDIA. TOLERATING JEVITY 1.5 40CC/HR VIA GTUBE. NO SOA OR DIFFICULTY BREATHING, CONTINUES OXYGEN 3.5L. ROSEMARIE PATENT TO DD. CALL LIGHT IN REACH.
--- NOTE | 2018-06-19 17:49 | EKG ---
[place] [address] ELECTROCARDIOGRAM REPORT Name: COSMO,AYSE WILLSON Room: [address] ADM IN M.R.#: [id number] Admission: 06/13/18 Attend Phys: Fredrick Laguerre MD Discharge: Date of : 59 Report #: [id number] THIS REPORT FOR: //name// [facility] Test Date: 2018-06-18 Test Time: 22:37:24 Pat Name: AYSE WILBURN Department: Room: [address] Gender: M Croze Cutter Helper: GORDON WOODARD : 1955 Requested By: Tristan Moody Order Number: [id number] Ene MD: Vaughn Mcduffie Measurements Intervals [place] Rate: 134 P: 76 IN: 113 QRS: 60 QRSD: 82 T: 237 QT: 295 QTc: 441 Interpretive Statements Sinus tachycardia Multiple premature complexes, vent & supraven Abnormal R-wave progression, late transition Left ventricular hypertrophy Nonspecific T abnormalities, inferior leads Compared to ECG 06/13/2018 02:59:04 T-wave abnormality now present Sinus rhythm no longer present ST (T wave) deviation still present Electronically Signed On 06-19-2018 17:48:56 CDT by Vaughn Mcduffie [email or web address] <ELECTRONICALLY SIGNED> By: Vaughn Mcduffie MD, [facility] 06/19/18 1748 36 36 Vaughn Mcduffie MD, [facility] /EPI
--- NOTE | 2018-06-19 18:08 | NUR ---
PATIENT ASSESSMENT REMAINED STABLE TODAY. REMAINED IN ICU PRIOR TO NSTEMI LAST NIGHT. PATIENT HAS DENIED CHEST PAIN THROUGHOUT SHIFT. CARDIAC RHYTHM REMAINS UNCHANGED. PATIENT GIVEN EDUCATION BY TRAY DRIER OPERATOR, HOSPITALIST, AND NURSE ABOUT NEED FOR HEART CATH. PATIENT PREFERS TO WAIT UNTIL WEDNESDAY MORNING TO SPEAK WITH HIS OWN TRAY DRIER OPERATOR, AND PREFERS TO TRANSFER TO [facility] TO HAVE PROCEDURE DONE. RISKS EXPLAINED IN DETAIL, REMAINS ADAMENT. PATIENT HAS NEW SWELLING TO BILATERAL ELBOWS. COMRPESSION WRAPS APPLIED TO BOTH. PATIENT HAS NOT HAD BOWEL MOVEMENT SINCE ADMISSION. MAG CITRATE GIVEN PER HOSPITALIST. TUBE FEEDINGS STOPPED. PATIENT STATES HE FEELS TOO FULL TO EAT. OTHERWISE NO NEW CONCERNS VOICED.
[2018-06-20] VITALS (17 sets, daily range): BP systolic 120–154; BP diastolic 68–94
--- NOTE | 2018-06-20 04:37 | NUR ---
REPORT RECEIVED FROM OFF GOING SHIFT AND CARE ASSUMMED. PT AAOX4 RESP REG AND UNLABORED SKIN W/D. NO ALCUTE DISTRESS NOTED. O2 4L BNC INTACT. PT DID NOT HAVE A BM THIS SHIFT. PT DOES NOT WANT TUBE FEEDING TURNED ON D/T CONSTIPATION AND BELLY HURTING FROM NO BM. PT STATES HE HAS NOT SLEPT ANY THIS SHIFT ALTHOUGH HE APPEARED TO BE SLEEPING BRIEF PERIODS THIS SHIFT, BUT AROUSES WHEN WE ENTER ROOM. MONITORS INTACT WITH ALARMS SET. [place] INTACT AND PATENT DRAINING YELLOW URINE TO BEDSIDE BAG. PT HAS REFUSED SOME OF HIS BREATHING TREATMENTS THIS SHIFT. VSS AND NO ACUTE CHANGES THIS SHIFT. PT DENIES CHEST PAIN. WILL CONTINUE TO MONITOR.
[2018-06-20 08:50] LABS: HEMATOCRIT 34.2 % (42.0-52.0); HEMOGLOBIN 11.1 gm/dL (14.0-18.0); MCHC 32.4 g/dL (28.0-37.0); MCV 83.3 fL (80.0-100.0); MPV 8.6 fl. (7.2-11.1); NUCLEATED RBCS 0 /100WBC; PLATELET COUNT* 234 thou/uL (150-400); RDW-CV 17.9 % (10.5-14.5); WBC 13.5 thou/uL (4.0-11.0)
[2018-06-20 09:19] LABS: ABSOLUTE LYMPHOCYTES 0.5 thou/uL (0.8-5.3); CALCIUM 8.2 mg/dL (8.5-10.1); CREATININE 0.8 mg/dL (0.6-1.3); PLATELET ESTIMATE ADEQUATE; POTASSIUM 4.1 mmol/L (3.5-5.1); TOTAL BILIRUBIN 0.2 mg/dL (<0.1-1.0); TOTAL PROTEIN 4.4 g/dL (6.4-8.2)
[2018-06-20 09:23] LABS: TROPONIN-I LEVEL 1.14 ng/mL (<0.06)
--- NOTE | 2018-06-20 10:50 | NUR ---
ICU ROUNDING: RN IN-CHARGE OF THE PATIENT INFORMS THAT THE PATIENT HAD INITIALLY WANTED TO TRANSFER TO [facility] FOR TAVR, BUT AFTER SPEAKING TO HIS DEHYDRATION PLANT OPERATOR HAS DECIDED TO HEART CATH HERE. D/C BOOKKEEPING MANAGER SPOKE TO THE PATIENT AND SPOUSE TO DISCUSS PATIENT'S SPOUSE REQUEST TO HAVE CM ASSIST WITH A LETTER FOR HER EMPLOYER THAT INFORMS OF HER NEED TO BE WITH HER SPOUSE D/T HIS CURRENT MEDICAL CONDITIONS, AND NEED TO ASSIST HIM. PATIENT'S SPOUSE REQUEST THAT THE LETTER BE FAXED TO HER EMPLOYER WHEN COMPLETED AND A COPY BE GIVEN TO HER WELL. CM WILL ASSIST WITH THIS. CM WILL REMAIN AVAILABLE TO ASSIST AND FOLLOW NEEDED.
--- NOTE | 2018-06-20 17:15 | NUR ---
PT RESTING IN BED THROUGHOUT SHIFT. PT REFUSES TURNS BUT REPOSITIONS SELF WELL. PT TOLERATING PO WELL. [place] CATH DRAINING CLEAR YELLOW URINE. DENIES PAIN. SOA WITH ACTIVITY. PT STATES SHE DOES NOT WANT TO TRANSFER AT THIS TIME. AT AND UPDATED ON PLAN OF CARE
[2018-06-21] VITALS (19 sets, daily range): BP systolic 115–163; BP diastolic 66–94
[2018-06-21 04:55] LABS: HEMOGLOBIN 10.5 gm/dL (14.0-18.0); MCH 27.1 pg (26.0-34.0); MCHC 32.8 g/dL (28.0-37.0); MCV 82.8 fL (80.0-100.0); MPV 8.4 fl. (7.2-11.1); RBC 3.87 mil/uL (4.50-6.00); RDW-CV 17.7 % (10.5-14.5); WBC 11.3 thou/uL (4.0-11.0)
[2018-06-21 05:46] LABS: ALBUMIN 1.7 g/dL (3.4-5.0); CALCIUM 7.6 mg/dL (8.5-10.1); CREATININE 0.9 mg/dL (0.6-1.3); MAGNESIUM 2.1 mg/dL (1.8-2.4); POTASSIUM 3.8 mmol/L (3.5-5.1); TOTAL BILIRUBIN 0.3 mg/dL (<0.1-1.0); TOTAL PROTEIN 4.4 g/dL (6.4-8.2)
[2018-06-21 05:52] LABS: TROPONIN-I LEVEL 0.82 ng/mL (<0.06)
--- NOTE | 2018-06-21 06:57 | NUR ---
VITALS WNL, PATIENT SLEPT THROUGH THE NIGHT. REQUESTS TO BE FULL CODE, PROVIDER NOTIFIED, AWARE OF THIS. CALL LIGHT WITHIN REACH. REFUSES TO BE TURNED Q2. REFUSES ACCUCHECKS. WILL CONTINUE TO MONITOR.
--- NOTE | 2018-06-21 17:58 | NUR ---
06/21 Days: Per cardiology hrt cath on hold for now until further clarification. Patient continues to refuse turns, education given on skin breakdown. Patient did get up in recliner for about an hour this afternoon with PT. Patient is tele status
[2018-06-22] VITALS: BP 128/72
[2018-06-22 04:00] VITALS: BP 139/81
[2018-06-22 05:28] LABS: HEMATOCRIT 31.8 % (42.0-52.0); HEMOGLOBIN 10.6 gm/dL (14.0-18.0); MCH 27.6 pg (26.0-34.0); MCHC 33.3 g/dL (28.0-37.0); MCV 82.7 fL (80.0-100.0); MPV 8.4 fl. (7.2-11.1); RBC 3.84 mil/uL (4.50-6.00); RDW-CV 17.7 % (10.5-14.5); WBC 10.7 thou/uL (4.0-11.0)
[2018-06-22 05:45] LABS: CALCIUM 7.7 mg/dL (8.5-10.1); MAGNESIUM 1.9 mg/dL (1.8-2.4); POTASSIUM 3.7 mmol/L (3.5-5.1); TROPONIN-I LEVEL 0.47 ng/mL (<0.06)
--- NOTE | 2018-06-22 06:05 | NUR ---
VITALS STABLE, PATIENT SLEPT THROUGH THE NIGHT. AFEBRILE, NO BM. CALL LIGHT WITHIN REACH. PATIENT REFUSES TURNS.
[2018-06-22 08:00] VITALS: BP 151/91
--- NOTE | 2018-06-22 10:38 | NUR ---
SPOKE WITH PT AND . PT SAID HE WAS FEELING BETTER. PT WAS UP IN THE CHAIR YESTERDAY, SAID IT WAS DIFFICULT TO GET HIM TO THE CHAIR BUT HE DID OKAY SITTING UP. PT PLANS ON RETURNING HOME WITH HIS . CASE MGT WILL CONTINUE TO FOLLOW.
[2018-06-22 12:00] VITALS: BP 143/85
--- NOTE | 2018-06-22 15:22 | NUR ---
PT TRANSFERRED TO TELE UNIT ROOM 213 AT THIS TIME. VSS. ALL CONCERNS ADDRESSED. PT ORIENTED TO ROOM. NO OTHER CONCERNS AT THIS TIME. CLWR. WCTM.
--- NOTE | 2018-06-22 15:23 | NUR ---
PATIENT ALERT AND ORIENTED X4. VITALS WITHIN NORMAL RANGE. O2 SATS MAINTAINED WITH NC 4L/M. DR BRADFORD CAME DOWN AND STATED THAT HE WOULD DISCUSS TAVR WITH [facility] TEAM TODAY FOR HIS SEVERE . PATIENT WAS MOVED UP TO A RECLINER WITH 2 PERSON ASSIST. OT WORKED WITH HIM AND HE WAS ABLE TO CLEAN AND GROOM HIMSELF. TRANSFERRED TO TELE #[id number] IN RECLINER.
[2018-06-22 15:24] VITALS: BP 164/100
[2018-06-22 20:00] VITALS: BP 119/70
--- NOTE | 2018-06-22 20:00 | NUR ---
RECEIVED REPORT AND ASSUMED CARE OF PT, ASSESSMENT COMPLETED. PT VERY IRRITABLE STATED HE MIGHT WELL GO HOME BECAUSE THERE IS NOTHING TO DO FOR HIM BUT HOSPICE. REASSURANCE GIVEN. O2 ON AT 4L/NC. ASSISTED TO BSC WITH MOD OF 2, PT VERY WEAK. ABD DISTENDED. TELEMETRY ON SHOWING SR. WILL CONT TO MONITOR AND ASSIST NEEDED.
[2018-06-23] VITALS: BP 144/86
[2018-06-23 04:00] VITALS: BP 158/86
[2018-06-23 04:57] LABS: HEMATOCRIT 29.8 % (42.0-52.0); HEMOGLOBIN 9.9 gm/dL (14.0-18.0); MCH 27.8 pg (26.0-34.0); MCHC 33.3 g/dL (28.0-37.0); MCV 83.4 fL (80.0-100.0); MPV 8.4 fl. (7.2-11.1); RBC 3.57 mil/uL (4.50-6.00); RDW-CV 17.4 % (10.5-14.5); WBC 11.5 thou/uL (4.0-11.0)
[2018-06-23 05:39] LABS: CREATININE 0.9 mg/dL (0.6-1.3); POTASSIUM 3.6 mmol/L (3.5-5.1); TROPONIN-I LEVEL 0.38 ng/mL (<0.06)
--- NOTE | 2018-06-23 06:09 | NUR ---
SLEPT WELL TONIGHT. ASSISTED WITH TURNING Q 2HR. NO BREAKDOWN NOTED. HAVING OCC MOIST NON-PROD COUGH. O2 REMAINS ON AT 4L/NC. NO CHANGE IN ASSESSMENT. TELEMETRY CONT TO SHOW SR TO SB. HS GOALS OF REST AND SAFETY ACHIEVED. HOURLY ROUNDING OBSERVED.
[2018-06-23 10:19] LABS: CHOLESTEROL 206 mg/dL (<200); HDL CHOLESTEROL 52 mg/dL (>40); LDL CHOLESTEROL 122 mg/dL (<100); TRIGLYCERIDE 160 mg/dL (<150); VLDL 32 mg/dL (<40)
[2018-06-23 10:20] LABS: SERUM ASSESSMENT Clear
[2018-06-23 11:00] VITALS: BP 160/92
[2018-06-23 12:16] VITALS: BP 136/84
--- NOTE | 2018-06-23 12:39 | NUR ---
Per nurse, Pt may be ready to dc to home today. Pt completed an outside of the hospital DNR. in room and will transport
[2018-06-23 16:18] VITALS: BP 151/93
[2018-06-23] MEDS ORDERED: NICOTINE TRANSD14 M1 TRANSDERM (16:27)
[2018-06-23] MEDS ORDERED: CARVEDILOL25 MG PO (16:27)
[2018-06-23] MEDS ORDERED: ALBUTEROL SULFAT2 MG PO (16:27)
[2018-06-23] MEDS ORDERED: PREDNISONE 10 M10 MG PO (16:27)
--- NOTE | 2018-06-23 17:10 | NUR ---
06/23 Days: Patient decided to go home with hospice. Hospice visited and was a canadite. Supplies and meds being sent to the house this evening. Transport planned for 1800. Patient completed an outside of hospital DNR form and will be sent with patient. went home to ready the living room.
[2018-06-23 17:18] VITALS: BP 151/93
--- NOTE | 2018-06-23 18:24 | NUR ---
06/23 Days: Patients transfer team arrived, patient stated there was not bed from hospice at home but the meds did arrive. Called hospice nurse and she stated the bed would be there anytime and that the and her agreed patient would go in the recliner if bed was not there. Patient has oxygen at home already. Central line removed earlier, hemostatsis achived with light pressure. dressing applied. Discharge instructions given, questions answered. Hospice to manage pain and anxiety meds. Patient adament about being discharged today. Patient left with martin per patient request.
--- NOTE | 2018-06-24 07:56 | NUR ---
Pt discharged to home last evening with [facility]. Ambulance transported around 6pm
== END 2018-06-23 18:15 | disposition hospice, home (50) | DRG 208 ==
LOC: M.ERS 02:38 → M.2W 03:55 → M.ICU 03:55 → M.TBA-ER 03:55 → M.ICU 03:57 → M.2W 06-22 15:20
PROVIDERS: Emergency Medicine Emergency Medical Services; Family Medicine; Internal Medicine; Internal Medicine Pulmonary Disease; Registered Nurse; ADMIT Internal Medicine
DX: J96.21 Acute and chronic respiratory failure with hypoxia (principal); E43 Unspecified severe protein-calorie malnutrition; I21.A1 Myocardial infarction type 2; J18.9 Pneumonia, unspecified organism; J44.1 Chronic obstructive pulmonary disease with (acute) exacerbation; Z68.1 Body mass index [BMI] 19.9 or less, adult; I42.9 Cardiomyopathy, unspecified; I50.42 Chronic combined systolic (congestive) and diastolic (congestive) heart failure; J44.0 Chronic obstructive pulmonary disease with (acute) lower respiratory infection; I11.0 Hypertensive heart disease with heart failure; J96.22 Acute and chronic respiratory failure with hypercapnia; I35.0 Nonrheumatic aortic (valve) stenosis; E78.5 Hyperlipidemia, unspecified; R13.10 Dysphagia, unspecified; I48.0 Paroxysmal atrial fibrillation; I73.9 Peripheral vascular disease, unspecified; F17.210 Nicotine dependence, cigarettes, uncomplicated; Z95.1 Presence of aortocoronary bypass graft; Z93.1 Gastrostomy status; Z99.81 Dependence on supplemental oxygen; Z79.51 Long term (current) use of inhaled steroids; Z79.82 Long term (current) use of aspirin; Z79.899 Other long term (current) drug therapy; Z88.5 Allergy status to narcotic agent; Z88.8 Allergy status to other drugs, medicaments and biological substances